=== PATIENT | female | born 1955 | race Asian ===

== ENCOUNTER 2017-01-06 09:55 | Day surgery (SDC) | payer OTHER ==
[~2017-01-06] VITALS: Ht 167.6 cm; Wt 64.8 kg
[2017-01-06 10:45] VITALS: Ht 167.6 cm; Wt 64.8 kg
[2017-01-06] MEDS ORDERED: CALCIUM PO (10:53)
[2017-01-06] MEDS ORDERED: VITAMIN D (10:53)
[2017-01-06] MEDS ORDERED: ATOR10TA65 PO (10:53)
[2017-01-06 11:36] VITALS: BP 123/76; PULSE 80; RESP 22
[2017-01-06 11:42] VITALS: BP 113/62; PULSE 81; RESP 20
[2017-01-06] MEDS ORDERED: FENTAnyl 50 MCG/ML VIAL ONE (12:33)
[2017-01-06] MEDS ORDERED: MIDAZOLAM 1 MG/ML 2 ML INJ ONE ×3 (12:34)
--- NOTE | 2017-01-06 12:38 | GILP ---
DATE OF PROCEDURE: PROCEDURE PERFORMED: Esophagogastroduodenoscopy with biopsy and colonoscopy. INDICATION: A 61-year-old female undergoing this procedure for colon cancer screening and also for anemia. The purpose is to evaluate the upper GI tract and lower GI tract and find out the source of GI blood loss. INFORMED CONSENT: The risk of the procedure, related and unrelated complications, anesthetic risks, sedative risks, alternatives were discussed and informed consent was obtained. DESCRIPTION OF PROCEDURE: The patient was brought to the GI lab, sedated with Versed 4 mg and fenta nyl 100 mcg. After optimum sedation, the scope was passed with much ease into the esophagus, which w as grossly within normal limits. The Z line was at 40 cm. Stomach mucosa revealed erosive gastriti s. Multiple biopsies were taken. Duodenum, first and second part, was within normal limits. Retro version was done in the stomach. No gross was identified. The scope was straightened out and remov ed, with good patient tolerance. IMPRESSION: 1. Normal esophagus. 2. Z line at 40 cm. 3. Erosive gastritis. Multiple biopsies obtained. 4. Normal duodenum and ampulla. PLAN: Review histopathology. COLONOSCOPY REPORT: She was turned around and the scope was passed with much ease into the rectum, advanced through the sigmoid, descending, transverse colon, all the way into cecum, and finally into the terminal ileum. Terminal ileum was normal. Rest of the colon appeared normal. Retroflexion w as done in the rectum. Hemorrhoids were identified. The scope was straightened out and removed, wi th good patient tolerance. Digital exam also was normal. IMPRESSION: 1. Normal finding all the way into the cecum. 2. Normal terminal ileum. 3. Retroflexion showed small hemorrhoids. 4. The clarity and cleanliness was good. PLAN: Monitor H and H. This finding cannot explain the anemia. If she continues to be anemic, the n will do capsule endoscopy. Dictated By: SHELDON ANDERSON/STEPH Conf#: [id number] DID#: [id number]
[2017-01-06 12:44] VITALS: BP 114/60; PULSE 69; RESP 20
== END 2017-01-06 13:53 | disposition home or self-care (01) ==
LOC: GIL 09:55
PROVIDERS: ATTEND Internal Medicine Gastroenterology
DX: Z12.11 Encounter for screening for malignant neoplasm of colon (principal); D12.2 Benign neoplasm of ascending colon; K29.60 Other gastritis without bleeding; E78.5 Hyperlipidemia, unspecified
CPT/HCPCS: 43239; 45380; 88305; 88312; J2250; J3010; Z7610